=== PATIENT | male | born 1995 | race African-American/Black ===

== ENCOUNTER 2019-05-08 15:36 | Emergency (ER) | payer OTHER ==
[2019-05-08] MEDS ORDERED: FENTANYL CITR 100 MCG/2 ML ONE (17:37)
[2019-05-08] MEDS ORDERED: NA CHLORIDE 0.9% 1,000 ML ONE (17:37)
[2019-05-08 17:40] LABS: Absolute Lymphocytes (CBC) 1.6 K/uL (0.7-4.9); Basophils % 0.6 % (0-1.3); Hematocrit 47.3 % (39.6-49.0); Lymphocytes % 22.2 % (15.3-44.8); MPV 9.3 fL (7.6-11.3); RBC Red Blood Cell Count 5.68 M/uL (4.33-5.43)
[2019-05-08 17:56] LABS: ALT/SGPT 45 U/L (12-78); AST/SGOT 20 U/L (15-37); Albumin 4.5 g/dL (3.4-5.0); Alkaline Phosphatase 107 U/L (45-117); BUN Blood Urea Nitrogen 7 mg/dL (7-18); Bicarbonate 30 mmol/L (21-32); Bilirubin Direct 0.4 mg/dL (0-0.2); Bilirubin Total 1.5 mg/dL (0.2-1.0); Glucose Level 86 mg/dL (74-106); Lipase 50 U/L (73-393); Potassium 3.7 mmol/L (3.5-5.1); Protein, Total 8.4 g/dL (6.4-8.2); Sodium Level 138 mmol/L (136-145)
--- NOTE | 2019-05-08 19:23 | RAD REPORT ---
EXAM DESCRIPTION: CTAbdomen Pelvis W Contrast - 05/08/2019 7:15 pm CLINICAL HISTORY: Abdominal pain. Abd pain;Constipation COMPARISON: <Comparisons> TECHNIQUE: Biphasic CT imaging of the abdomen and pelvis was performed with 100 ml non-ionic IV cont rast. All CT scans are performed using dose optimization technique as appropriate and may include automated exposure control or mA/KV adjustment according to patient size. FINDINGS: The lung bases are clear. The liver, spleen, pancreas, adrenal glands and kidneys are within normal limits. No bowel obstruction, free air, free fluid or abscess. Moderate fecal retention in the colon seen. Th e appendix is normal. No evidence of significant lymphadenopathy. No suspicious bony findings. IMPRESSION: No acute intra-abdominal or pelvic finding. Moderate fecal retention in the colon.
[2019-05-08] MEDS ORDERED: MAGNESIUM CITRATE 300 ML BOT ONE (20:02)
--- NOTE | 2019-05-08 21:09 | ER ---
Nurse's Notes [facility] Name: Christina Almaguer Age: 23 yrs Sex: Male : 1995 Arrival Date: 05/08/2019 Time: 15:37 Bed 27 Private MD: Diagnosis: Lower abdominal pain, unspecified;Constipation Presentation: 05/08 15:38 Presenting complaint: Patient states: i have abdominal pain and constipation for 1 week mg2 now. Transition of care: patient was not received from another setting of care. Onset of symptoms was April 2019. Risk Assessment: Do you want to hurt yourself or someone else? Patient reports no desire to harm self or others. Initial Sepsis Screen: Does the patient meet any 2 criteria? No. Patient's initial sepsis screen is negative. Does the patient have a suspected source of infection? No. Patient's initial sepsis screen is negative. Care prior to arrival: None. 15:38 Method Of Arrival: Law Enforcement: [facility] mg2 15:38 Acuity: TOM 3 mg2 Historical: - Allergies: 15:42 No Known Allergies; mg2 - Home Meds: 15:42 Albuterol Inhl [Active]; mg2 - PMHx: 15:42 Asthma; mg2 - PSHx: 15:42 None; mg2 - Immunization history:: Flu vaccine is not up to date. - Social history:: Smoking status: Patient/guardian denies using tobacco, Patient/guardian denies using alcohol, street drugs, IV drugs. - Ebola Screening: : No symptoms or risks identified at this time. Screenin:42 Abuse screen: Denies threats or abuse. Denies injuries from another. Nutritional mg2 screening: No deficits noted. Tuberculosis screening: No symptoms or risk factors identified. Fall Risk None identified. Assessment: 16:20 General: Appears uncomfortable, Behavior is calm, cooperative, appropriate for age. tr5 Pain: Complains of pain in abdomen Pain does not radiate. Pain currently is 8 out of 10 on a pain scale. Quality of pain is described as aching, crampy. Neuro: Level of Consciousness is awake, alert, obeys commands, Oriented to person, place, time, Brewery Representative are equal bilaterally Moves all extremities. Cardiovascular: Cardiovascular: Capillary refill < 3 seconds Pulses are all present. Edema is absent. Respiratory: Airway is patent Respiratory effort is even, unlabored, Respiratory pattern is regular, symmetrical. GI: No signs and/or symptoms were reported involving the gastrointestinal system. : No signs and/or symptoms were reported regarding the genitourinary system. EENT: No signs and/or symptoms were reported regarding the EENT system. Derm: No signs and/or symptoms reported regarding the dermatologic system. Musculoskeletal: No signs and/or symptoms reported regarding the musculoskeletal system. 18:00 Reassessment: Patient appears in no apparent distress at this time. Patient and/or tr5 family updated on plan of care and expected duration. Pain level reassessed. Patient is alert, oriented x 3, equal unlabored respirations, skin warm/dry/pink. 19:00 Reassessment: Patient appears in no apparent distress at this time. No changes from tr5 previously documented assessment. Patient and/or family updated on plan of care and expected duration. Pain level reassessed. Patient is alert, oriented x 3, equal unlabored respirations, skin warm/dry/pink. Officers at bedside with pt's. 20:10 Reassessment: Patient appears in no apparent distress at this time. Patient and/or tr5 family updated on plan of care and expected duration. Pain level reassessed. Patient is alert, oriented x 3, equal unlabored respirations, skin warm/dry/pink. Vital Signs: 15:40 BP 157 / 105; Pulse 65; Resp 18; Temp 98.2(O); Pulse Ox 100% on R/A; Weight 104.78 kg; mg2 Height 6 ft. 2 in. (187.96 cm); 17:00 BP 144 / 111; Pulse 65; Resp 16; Pulse Ox 99% on R/A; tr5 18:00 BP 136 / 99; Pulse 63; Resp 14; Pulse Ox 100% on R/A; tr5 18:53 BP 159 / 101; Pulse 65; Resp 15; Pulse Ox 99% on R/A; tr5 20:10 BP 148 / 91; Pulse 67; Resp 16; Pulse Ox 100% on R/A; tr5 15:40 Body Mass Index 29.66 (104.78 kg, 187.96 cm) mg2 ED Course: 15:37 Patient arrived in ED. mg2 15:40 Triage completed. mg2 15:41 Arm band placed on. mg2 15:42 Allergy band placed. Door closed. Warm blanket given. mg2 16:16 Chrystal Marshall FNP-C is [facility]. snw 16:16 Carlos Eduardo Phillip MD is Attending Physician. snw 17:11 Maurilio Pardo, RN is Primary Nurse. tr5 17:15 Initial lab(s) drawn, by me, sent to lab. Inserted saline lock: 20 gauge in right tr5 antecubital area, using aseptic technique. 19:17 CT Abd/Pelvis - PO and IV Contrast In Process Unspecified. EDMS 21:18 No provider procedures requiring assistance completed. IV discontinued. tr5 Administered Medications: 17:30 Drug: fentaNYL (PF) 25 mcg {Note: RASS:0.} Route: IVP; Site: right antecubital; tr5 18:54 Follow up: Response: Pain is decreased; RASS: Alert and Calm (0) tr5 17:59 Drug: NS 0.9% 1000 ml Route: IV; Rate: 1 bolus; Site: right antecubital; tr5 20:06 Drug: Magnesium Citrate Liquid 300 ml Route: PO; tr5 20:57 Follow up: Response: No adverse reaction tr5 Outcome: 21:08 Discharge ordered by . snw 21:18 Discharged to home ambulatory. tr5 21:18 Condition: stable 21:18 Discharge instructions given to patient, Officers Instructed on Demonstrated understanding of instructions, follow-up care, medications, Prescriptions given X 1. 21:18 Patient left the ED. tr5 Signatures: Dispatcher [employer] EDFL Chrystal Marshall FNP-C BLEACH MACHINE OPERATOR-Csnw Conner Hagen RN RN [facility] Maurilio Pardo, SORAYA RN tr5
--- NOTE | 2019-05-08 21:09 | EDPHYS ---
Physician Documentation [facility] Name: Christina Almaguer Age: 23 yrs Sex: Male : 1995 Arrival Date: 05/08/2019 Time: 15:37 Bed 27 Private MD: ED Physician Carlos Eduardo Phillip HPI: 05/08 17:23 This 23 yrs old Black Male presents to ER via Law Enforcement with complaints of abd snw pain, constipation. 17:23 The patient presents with abdominal pain in the left upper quadrant, in the left lower snw quadrant. Onset: The symptoms/episode began/occurred gradually, 1 week(s) ago. The symptoms do not radiate. Associated signs and symptoms: Pertinent positives: constipation, anorexia. The symptoms are described as constant, steady, vague. Modifying factors: The symptoms are alleviated by nothing, the symptoms are aggravated by pressure. Severity of pain: At its worst the pain was moderate. The patient has not experienced similar symptoms in the past. It is unknown whether or not the patient has recently seen a physician. Pt incarcerated, intermediate physician wants pt eval for choley. Historical: - Allergies: 15:42 No Known Allergies; mg2 - Home Meds: 15:42 Albuterol Inhl [Active]; mg2 - PMHx: 15:42 Asthma; mg2 - PSHx: 15:42 None; mg2 - Immunization history:: Flu vaccine is not up to date. - Social history:: Smoking status: Patient/guardian denies using tobacco, Patient/guardian denies using alcohol, street drugs, IV drugs. - Ebola Screening: : No symptoms or risks identified at this time. ROS: 17:21 Constitutional: Negative for fever, chills, and weight loss, Eyes: Negative for injury, snw pain, redness, and discharge, ENT: Negative for injury, pain, and discharge, Neck: Negative for injury, pain, and swelling, Cardiovascular: Negative for chest pain, palpitations, and edema, Respiratory: Negative for shortness of breath, cough, wheezing, and pleuritic chest pain, Back: Negative for injury and pain, : Negative for injury, bleeding, discharge, and swelling, MS/Extremity: Negative for injury and deformity, Skin: Negative for injury, rash, and discoloration, Neuro: Negative for headache, weakness, numbness, tingling, and seizure, Psych: Negative for depression, anxiety, suicide ideation, homicidal ideation, and hallucinations. 17:21 Abdomen/GI: Positive for abdominal pain, constipation, anorexia, of the left upper quadrant and left lower quadrant. Exam: 17:21 Constitutional: This is a well developed, well nourished patient who is awake, alert, snw and in no acute distress. Head/Face: Normocephalic, atraumatic. Eyes: Pupils equal round and reactive to light, extra-ocular motions intact. Lids and lashes normal. Conjunctiva and sclera are non-icteric and not injected. Cornea within normal limits. Periorbital areas with no swelling, redness, or edema. ENT: Nares patent. No nasal discharge, no septal abnormalities noted. Tympanic membranes are normal and external auditory canals are clear. Oropharynx with no redness, swelling, or masses, exudates, or evidence of obstruction, uvula midline. Mucous membranes moist. Neck: Trachea midline, no thyromegaly or masses palpated, and no cervical lymphadenopathy. Supple, full range of motion without nuchal rigidity, or vertebral point tenderness. No Meningismus. Chest/axilla: Normal chest wall appearance and motion. Nontender with no deformity. No lesions are appreciated. Cardiovascular: Regular rate and rhythm with a normal S1 and S2. No gallops, murmurs, or rubs. Normal PMI, no JVD. No pulse deficits. Respiratory: Lungs have equal breath sounds bilaterally, clear to auscultation and percussion. No rales, rhonchi or wheezes noted. No increased work of breathing, no retractions or nasal flaring. Back: No spinal tenderness. No costovertebral tenderness. Full range of motion. Skin: Warm, dry with normal turgor. Normal color with no rashes, no lesions, and no evidence of cellulitis. MS/ Extremity: Pulses equal, no cyanosis. Neurovascular intact. Full, normal range of motion. Neuro: Awake and alert, GCS 15, oriented to person, place, time, and situation. Cranial nerves II-XII grossly intact. Motor strength 5/5 in all extremities. Sensory grossly intact. Cerebellar exam normal. Normal gait. Psych: Awake, alert, with orientation to person, place and time. Behavior, mood, and affect are within normal limits. 17:21 Abdomen/GI: Inspection: abdomen appears normal, Bowel sounds: diminished, Palpation: moderate abdominal tenderness, in the left upper quadrant and left lower quadrant, Indicators: McBurney's point is not tender, Zavala's sign is negative, Rovsing's sign is negative, Obturator sign is negative, Psoas sign is negative. Vital Signs: 15:40 BP 157 / 105; Pulse 65; Resp 18; Temp 98.2(O); Pulse Ox 100% on R/A; Weight 104.78 kg; mg2 Height 6 ft. 2 in. (187.96 cm); 17:00 BP 144 / 111; Pulse 65; Resp 16; Pulse Ox 99% on R/A; tr5 18:00 BP 136 / 99; Pulse 63; Resp 14; Pulse Ox 100% on R/A; tr5 18:53 BP 159 / 101; Pulse 65; Resp 15; Pulse Ox 99% on R/A; tr5 20:10 BP 148 / 91; Pulse 67; Resp 16; Pulse Ox 100% on R/A; tr5 15:40 Body Mass Index 29.66 (104.78 kg, 187.96 cm) mg2 MDM: 16:16 Patient medically screened. snw 21:09 Data reviewed: vital signs, nurses notes. Data interpreted: Pulse oximetry: on room air snw is 100 %. Interpretation: normal. Counseling: I had a detailed discussion with the patient and/or guardian regarding: the historical points, exam findings, and any diagnostic results supporting the discharge/admit diagnosis, lab results, radiology results, the need for outpatient follow up, to return to the emergency department if symptoms worsen or persist or if there are any questions or concerns that arise at home. Special discussion: Based on the patient's Hx, exam, and Dx evaluation, there is no indication for emergent surgery or inpatient Tx. It is understood by the patient/guardian that if the Sx's persist or worsen they need to return immediately for re-evaluation. Based on the history and exam findings, there is no indication for further emergent testing or inpatient evaluation. I discussed with the patient/guardian the need to see the primary care provider for further evaluation of the symptoms. 05/08 17:13 Order name: Basic Metabolic Panel; Complete Time: 18:27 snw 05/08 17:13 Order name: CBC with Diff; Complete Time: 18:27 snw 05/08 17:13 Order name: Creatinine for Radiology; Complete Time: 18:27 snw 05/08 17:13 Order name: Hepatic Function; Complete Time: 18:27 snw 05/08 17:13 Order name: Lipase; Complete Time: 18:27 snw 05/08 17:13 Order name: CT Abd/Pelvis - PO and IV Contrast; Complete Time: 19:37 snw 05/08 17:13 Order name: IV Saline Lock; Complete Time: 17:59 snw 05/08 17:13 Order name: Labs collected and sent; Complete Time: 17:59 snw Administered Medications: 17:30 Drug: fentaNYL (PF) 25 mcg {Note: RASS:0.} Route: IVP; Site: right antecubital; tr5 18:54 Follow up: Response: Pain is decreased; RASS: Alert and Calm (0) tr5 17:59 Drug: NS 0.9% 1000 ml Route: IV; Rate: 1 bolus; Site: right antecubital; tr5 20:06 Drug: Magnesium Citrate Liquid 300 ml Route: PO; tr5 20:57 Follow up: Response: No adverse reaction tr5 Disposition: 05/09 07:12 Co-signature as Attending Physician, Carlos Eduardo Phillip MD. rn Disposition: 05/08/19 21:08 Discharged to Home. Impression: Lower abdominal pain, unspecified, Constipation. - Condition is Stable. - Discharge Instructions: Abdominal Pain, Adult, Constipation, Adult, High-Fiber Diet. - Prescriptions for Miralax 17 gram/dose Oral - take 1 packet by ORAL route once daily dilute powder in 8 ounces of water or juice; 1 box. - Medication Reconciliation Form, Thank You Letter, Antibiotic Education, Prescription Opioid Use form. - Follow up: Private Physician; When: 2 - 3 days; Reason: Recheck today's complaints, Continuance of care, Re-evaluation by your physician. Follow up: Emergency Department; When: As needed; Reason: Worsening of condition. Signatures: Dispatcher [employer] EDChrystal Pryor, BRANDEN-C HEALTHCARE LIAISON-Csnw Carlos Eduardo Phillip MD MD rn Gardose, Michele, RN RN mg2 Rodriguez, Tommie, RN RN tr5 Corrections: (The following items were deleted from the chart) 05/08 21:18 21:08 05/08/2019 21:08 Discharged to Home. Impression: Lower abdominal pain, tr5 unspecified; Constipation. Condition is Stable. Forms are Medication Reconciliation Form, Thank You Letter, Antibiotic Education, Prescription Opioid Use. Follow up: Private Physician; When: 2 - 3 days; Reason: Recheck today's complaints, Continuance of care, Re-evaluation by your physician. Follow up: Emergency Department; When: As needed; Reason: Worsening of condition. snw
[2019-05-08 21:26] VITALS: TEMP 98.2
[2019-05-08 21:32] VITALS: BP 148/91; O2SAT 100
== END 2019-05-08 21:18 | disposition home or self-care (01) ==
LOC: ER 15:36
DX: R10.30 Lower abdominal pain, unspecified (principal); K59.00 Constipation, unspecified; J45.909 Unspecified asthma, uncomplicated
CPT/HCPCS: 85025; 80048; 36415; 80076; 83690; 74177; 96374; 99284; Q9967; J3010; J7030